=== PATIENT | female | born 1960 | race Caucasian/White ===

== ENCOUNTER 2017-09-13 02:23 | Emergency (ER) | payer OTHER, MEDICAID ==
[2017-09-13 02:32] VITALS: RESP 18; TEMP 98.1
[2017-09-13 02:33] VITALS: BMI 32.4
[2017-09-13] MEDS ORDERED: Sodium Chloride 0.9% 1,000 ML IV STA (02:41)
--- NOTE | 2017-09-13 02:50 | ED PDOC ---
Arrival/HPI - General Chief Complaint: GI Problem Time Seen by Provider: 09/13/17 02:40 Historian: Patient - History of Present Illness Narrative History of Present Illness (Text): 09/13/17 02:45 57yo F PMH Hypertension, DM2, RA, hypothyroid who presents with nausea and vomiting x3 hours, which is non-bilious and non-bloody. pt denies fevers/chills , diarrhea, recent sick contacts, recent illness, chest pain, shortness of breath, palpitations, weakness. pt was recently discharged from [facility] for Hypertension. PMD: Julian Mccann PSH: L Knee repair (6 mo ago) Allergies: NKDA Meds: Losartan, Synthroid, and tramadol Time/Duration: 1-3 hours Symptom Onset: Sudden Symptom Course: Unchanged Severity Level: Moderate Activities at Onset: Rest Context: Home Past Medical History - Provider Review Nursing Documentation Reviewed: Yes - Infectious Disease Hx of Infectious Diseases: None - Tetanus Immunization Tetanus Immunization: Unknown - Reproductive Menopause: Yes - Cardiac Hx Cardiac Disorders: Yes Hx Hypertension: Yes - Pulmonary Hx Respiratory Disorders: No - Neurological Hx Neurological Disorder: Yes Hx Migraine: Yes - HEENT Hx HEENT Disorder: No - Renal Hx Renal Disorder: No - Endocrine/Metabolic Hx Endocrine Disorders: Yes Hx Diabetes Mellitus Type 2: Yes Hx Hypothyroidism: Yes - Hematological/Oncological Hx Blood Disorders: No - Integumentary Hx Dermatological Disorder: No - Musculoskeletal/Rheumatological Hx Musculoskeletal Disorders: Yes Hx Arthritis: Yes Hx Back Pain: Yes Hx Herniated Disk: Yes Hx Rheumatoid Arthritis: Yes - Gastrointestinal Hx Gastrointestinal Disorders: No - Genitourinary/Gynecological Hx Genitourinary Disorders: No - Psychiatric Hx Psychophysiologic Disorder: No Hx Substance Use: No - Surgical History Hx Orthopedic Surgery: Yes (L knee replacement) - Anesthesia Hx Anesthesia: Yes Hx Anesthesia Reactions: No - Suicidal Assessment Feels Threatened In Home Enviroment: No Family/Social History - Physician Review Nursing Documentation Reviewed: Yes Family/Social History: No Known Family HX Smoking Status: Never Smoked Hx Alcohol Use: No Hx Substance Use: No Hx Substance Use Treatment: No Allergies/Home Meds Allergies/Adverse Reactions: Allergies No Known Allergies Allergy (Verified 09/13/17 02:33) Home Medications: Home Meds Medication Instructions Recorded Confirmed Levothyroxine Sodium [Levoxyl] 0.075 mg PO DAILY 08/08/15 05/09/16 Losartan [Cozaar] 25 mg PO DAILY 08/08/15 05/09/16 Review of Systems - Physician Review All systems were reviewed & negative as marked: Yes - Review of Systems Constitutional: absent: Fevers Respiratory: absent: SOB Cardiovascular: absent: Chest Pain Gastrointestinal: Nausea, Vomiting. absent: Abdominal Pain, Diarrhea Physical Exam Vital Signs Reviewed: Yes Vital Signs Temp Pulse Resp BP Pulse Ox 09/13/17 02:32 98.1 F 90 18 172/111 H 99 Appearance: Positive for: Well-Appearing Pain Distress: None Mental Status: Positive for: Alert and Oriented X 3 - Systems Exam Head: Present: Atraumatic, Normocephalic Pupils: Present: PERRL Extroacular Muscles: Present: EOMI Conjunctiva: Present: Normal Mouth: Present: Other (currently vomiting) Neck: Present: Normal Range of Motion Respiratory/Chest: Present: Clear to Auscultation, Good Air Exchange Cardiovascular: Present: Regular Rate and Rhythm, Normal S1, S2 Abdomen: Present: Normal Bowel Sounds. No: Tenderness, Distention Upper Extremity: Present: Normal Inspection Lower Extremity: Present: Normal Inspection Neurological: Present: CN II-XII Intact Skin: Present: Warm, Dry Psychiatric: Present: Alert, Oriented x 3 Medical Decision Making ED Course and Treatment: 09/13/17 02:54 Impression: 57yo F presenting w/ nausea and vomiting x3 hours Plan: - Reassess and disposition - CT abd - Labs - UA Progress Notes: 09/13/17 04:51 EKG: Ordered, reviewed, and independently interpreted the EKG. Rate : 81 BPM Rhythm : NSR Interpretation : No ST-segment elevations or depressions, no T-wave inversions, normal intervals. 09/13/17 05:51 Reassessment: pt offering no complaints of n/v, headache, weakness, chest pain, abdominal pain or other complaints. pt is feeling much better. educated about proper follow up with PMD Re-evaluation Time: 05:51 Reassessment Condition: Re-examined, Improved - Lab Interpretations Lab Results: 09/13/17 03:35 09/13/17 03:35 Lab Results 09/13/17 03:35: Sodium 142, Potassium 3.6, Chloride 106, Carbon Dioxide 21, Anion Gap 19, BUN 11, Creatinine 0.7, Est GFR ( Amer) > 60, Est GFR (Non- Af Amer) > 60, Random Glucose 179 H, Calcium 9.9, Total Bilirubin 1.0, AST 96 H , ALT 94 H, Alkaline Phosphatase 166 H, Total Protein 8.2, Albumin 4.4, Globulin 3.8, Albumin/Globulin Ratio 1.2, Amylase 156 H, Lipase 266 09/13/17 03:35: PT 11.0, INR 1.02, APTT 22.1 L 09/13/17 03:35: WBC 13.1 H D, RBC 5.19, Hgb 13.9, Hct 41.8, MCV 80.5, MCH 26.8, MCHC 33.3, RDW 15.2 H, Plt Count 233, MPV 11.9 H, Gran % 67.7, Lymph % (Auto) 24.5, [place] % (Auto) 6.5 H, Eos % (Auto) 1.1 L, Baso % (Auto) 0.2, Gran # 8.86 H , Lymph # 3.2, [place] # 0.9 H, Eos # 0.1, Baso # 0.03 I have reviewed the lab results: Yes - RAD Interpretation Radiology Orders: 09/13/17 02:41 ABD & PELVIS IV CONTRAST ONLY [CT] Stat Fancy Sewer: Radiologist - EKG Interpretation Interpreted by ED Physician: Yes Type: 12 lead EKG - Medication Orders Current Medication Orders: Discontinued Medications Sodium Chloride (Sodium Chloride 0.9%) 1,000 mls @ 1,000 mls/hr IV .Q1H STA Stop: 09/13/17 03:40 Last Admin: 09/13/17 03:32 Dose: 1,000 mls/hr eMAR Start Stop Document 09/13/17 03:32 GAGANDEEP (Rec: 09/13/17 03:32 GAGANDEEP [id number]) Intravenous Solution Start Date 09/13/17 Start Time 03:32 End Date 09/13/17 End time 04:32 Total Infusion Time 60 Ondansetron HCl (Zofran Inj) 4 mg IVP STAT STA Stop: 09/13/17 02:42 Last Admin: 09/13/17 03:31 Dose: 4 mg IVP Administration Document 09/13/17 03:31 GAGANDEEP (Rec: 09/13/17 03:32 GAGANDEEP [id number]) Charges for Administration # of IVP Administrations 1 Pantoprazole Sodium (Protonix Inj) 40 mg IVP STAT STA Stop: 09/13/17 02:42 Last Admin: 09/13/17 03:31 Dose: 40 mg IVP Administration Document 09/13/17 03:31 GAGANDEEP (Rec: 09/13/17 03:31 GAGANDEEP [id number]) Charges for Administration # of IVP Administrations 1 Disposition/Present on Arrival - Present on Arrival Any Indicators Present on Arrival: No History of DVT/PE: No History of Uncontrolled Diabetes: No Urinary Catheter: No History of Decub. Ulcer: No History Surgical Site Infection Following: None - Disposition Have Diagnosis and Disposition been Completed?: Yes Diagnosis: Gastroenteritis Disposition: HOME/ ROUTINE Disposition Time: 05:53 Patient Plan: Discharge Condition: GOOD Discharge Instructions (ExitCare): Gastroenteritis (ED) Additional Instructions: Lorri, thank you for letting us take care of you today. Your providers were Dr. Stein and Dr. Xavier. You were treated for gastroenteritis. The emergency medical care you received today was directed at your acute symptoms. If you were prescribed any medication, please fill it and take as directed. It may take several days for your symptoms to resolve. Return to the Emergency Department if your symptoms worsen, do not improve, or if you have any other problems. Please contact your doctor or call one of the physicians/clinics you have been referred to that are listed on the Patient Visit Information form that is included in your discharge packet. Bring any paperwork you were given at discharge with you along with any medications you are taking to your follow up visit. Our treatment cannot replace ongoing medical care by a primary care provider (PCP) outside of the emergency department. Thank you for allowing the [facility] team to be part of your care today. Prescriptions: Ondansetron ODT [Zofran ODT] 8 mg PO TID PRN #12 odt PRN Reason: Nausea/Vomiting Referrals: Samantha Sandoval, [Primary Care Provider] - Follow up with primary Forms: Enohm (Lithuanian)
[2017-09-13 03:54] LABS: ALB/GLOB RATIO 1.2 (1.1-1.8); ALKALINE PHOSPHATASE 166 U/L (38-126); ALT/SGPT 94 U/L (7-56); AMYLASE 156 U/L (35-125); AST/SGOT 96 U/L (14-36); BLOOD UREA NITROGEN 11 mg/dL (7-21); CALCIUM 9.9 mg/dL (8.4-10.5); CARBON DIOXIDE 21 mmol/L (21-33); CHLORIDE 106 mmol/L (98-107); GFR AFRICAN-AMERICAN > 60; GLUCOSE,RANDOM 179 mg/dL (70-110); LIPASE 266 U/L (23-300); POTASSIUM 3.6 mmol/L (3.6-5.0); SODIUM 142 mmol/L (132-148); TOTAL PROTEIN 8.2 g/dL (5.8-8.3)
[2017-09-13 03:56] LABS: INR 1.02 (0.93-1.08); PARTIAL THROMBOPLASTIN TIME 22.1 Seconds (23.7-30.8)
[2017-09-13 03:57] LABS: BASO # 0.03 K/mm3 (0.0-2.0); BASO % 0.2 % (0.0-3.0); EOS # 0.1 (0.0-0.7); EOS % 1.1 % (1.5-5.0); GRAN # 8.86 (1.4-6.5); GRAN % 67.7 % (50.0-68.0); HEMATOCRIT 41.8 % (36.0-48.0); LYMPH # 3.2 (1.2-3.4); LYMPH % 24.5 % (22.0-35.0); MEAN CELL VOLUME 80.5 fl (80.0-105.0); MEAN CORPUSCULAR HEMOGLOBIN 26.8 pg (25.0-35.0); MEAN CORPUSCULAR HGB CONC 33.3 g/dl (31.0-37.0); MEAN PLATELET VOLUME 11.9 fl (7.0-11.0); MONO # 0.9 (0.1-0.6); MONO % 6.5 % (1.0-6.0); RED CELL DISTRIBUTION WIDTH 15.2 % (11.5-14.5); WHITE BLOOD COUNT 13.1 10^3/ul (4.5-11.0)
[2017-09-13] MEDS ORDERED: Iohexol 350 MG/100 ML VIAL ONE (04:02)
--- NOTE | 2017-09-13 05:33 | CT ---
EXAM: CT Abdomen and Pelvis With Intravenous Contrast CLINICAL HISTORY: 57 years old, female; Signs and symptoms; Nausea and vomiting; Additional info: N/v TECHNIQUE: Axial computed tomography images of the abdomen and pelvis with intravenous contrast. All CT scans at this facility use one or more dose reduction techniques, viz.: automated exposure control; ma/kV adjustment per patient size (including targeted exams where dose is matched to indication; i.e. head); or iterative reconstruction technique. Coronal and sagittal reformatted images were created and reviewed. CONTRAST: 96 mL of omni 350 administered intravenously. COMPARISON: No relevant prior studies available. FINDINGS: Lower thorax: There is minimal bibasilar atelectasis. The visualized heart appears mildly enlarged. Small hiatal hernia. ABDOMEN: Liver: Liver contour demonstrates slight nodularity raising the possibility of cirrhosis. There are no focal liver lesions present. Gallbladder and bile ducts: The gallbladder is contracted but otherwise normal. No calcified stones. No ductal dilation. Pancreas: Pancreas is slightly fatty replaced. No ductal dilation. Spleen: The spleen is normal. Adrenals: The adrenal glands are normal. Kidneys and ureters: The kidneys are normal. No hydronephrosis. Stomach and bowel: Stomach is decompressed. There is no evidence of intestinal obstruction. No mucosal thickening. Appendix: No findings to suggest acute appendicitis. PELVIS: Bladder: The bladder is normal. Reproductive: The uterus is normal. ABDOMEN and PELVIS: Intraperitoneal space: There is no evidence of free intraperitoneal fluid. There is no free intraperitoneal air. Bones/joints: There are mild degenerative changes present. No acute fracture. No dislocation. Soft tissues: Unremarkable. Vasculature: The aorta is normal. No abdominal aortic aneurysm. Lymph nodes: There are some top normal sized retroperitoneal nodes without moises adenopathy. IMPRESSION: No acute findings.
[2017-09-13 06:28] VITALS: BP 105/64; PULSE 76; O2SAT 100
--- NOTE | 2017-09-13 19:58 | CARD ---
APPROVED REPORT EKG Measurement Heart [id number] <Conclusion> Normal sinus rhythm Normal ECG
== END 2017-09-13 06:30 | disposition home or self-care (01) ==
LOC: ED 02:23
DX: K52.9 Noninfective gastroenteritis and colitis, unspecified (principal); E11.9 Type 2 diabetes mellitus without complications; E03.9 Hypothyroidism, unspecified; I10 Essential (primary) hypertension; M06.9 Rheumatoid arthritis, unspecified
CPT/HCPCS: 74177; 80053; 82150; 83690; 85025; 85610; 85730; 93005; 96361; 96374; 96375; 99284; C9113; J2405; J7040; Q9967